=== PATIENT | male | born 1965 | race African-American/Black ===

== ENCOUNTER 2018-08-31 00:02 | Emergency (ER) | payer MEDICARE, MEDICAID ==
[2018-08-31] MEDS ORDERED: THROMBIN (BOVINE) 5000 UNITS/VIAL TOP NR (00:15)
[2018-08-31 01:12] LABS: CHLORIDE 103 mEq/L (98-107)
[2018-08-31 01:13] LABS: HEMATOCRIT. 36.4 % (42.0-52.0); MEAN CORPUSCULAR HEMOGLOBIN 24.1 pg (28.0-32.0); MEAN CORPUSCULAR VOLUME 73.4 fL (80.0-94.0); RED BLOOD CELL COUNT 4.96 mill/uL (4.7-6.1); RED CELL DISTRIBUTION WIDTH 18.1 % (11.6-14.6)
[2018-08-31 03:12] LABS: ATYPICAL LYMPHOCYTES 1
[2018-08-31 03:14] LABS: PLATELET ESTIMATE DECREASED
[2018-08-31 03:15] LABS: PLATELET 97 x1000/uL (130-400)
[2018-08-31 03:37] VITALS: BP 171/66
== END 2018-08-31 03:45 | disposition home or self-care (01) ==
LOC: ER 00:02
DX: T82.838A Hemorrhage due to vascular prosthetic devices, implants and grafts, initial encounter (principal); Y84.1 Kidney dialysis as the cause of abnormal reaction of the patient, or of later complication, without mention of misadventure at the time of the procedure; E11.22 Type 2 diabetes mellitus with diabetic chronic kidney disease; I12.0 Hypertensive chronic kidney disease with stage 5 chronic kidney disease or end stage renal disease; N18.6 End stage renal disease; Z99.2 Dependence on renal dialysis; Y92.018 Other place in single-family (private) house as the place of occurrence of the external cause
CPT/HCPCS: 36415; 86850; 86870; 86900; 93005; 99291; J3490